=== PATIENT | female | born 1985 | race Caucasian/White ===

== ENCOUNTER 2018-01-25 09:02 | Observation (INO) | payer BC, SELFPAY ==
[~2018-01-25 09:02] MED LIST: Acetaminophen/HYDROcodone 325-5 MG Tab PO PRN; Bupivacaine 0.25%/EPINEPHrine 1:200,000 10 ML SDV INJECT ONE; Bupivacaine 25%/EPINEPHrine/PF 30 ML ONE; Clindamycin Phosphate in D5W 600 MG in Premix Bag 1 BAG IV ONE; Octyl 2-Cyanoacrylate 1 Tube ONE
[2018-01-25] MEDS ORDERED: Scopolamine 1.5 MG Transdermal Patch TRDERM PRN (09:33)
--- NOTE | 2018-01-25 09:34 | PCM.PREANE ---
Preanesthetic Assessment - Anesthesia/Transfusion/Family Hx Anesthesia History: Prior Anesthesia Reaction Type of Anesthesia Reaction: Excessive Nausea/Vomiting Family History of Anesthesia Reaction: No Transfusion History: No Prior Transfusion(s) - Review of Systems General: No Symptoms Pulmonary: No Symptoms Cardiovascular: No Symptoms Gastrointestinal: No Symptoms Neurological: No Symptoms Other: Reports: None - Physical Assessment NPO Status Date: 01/24/18 Height: 1.63 m Weight: 84.822 kg ASA Class: 2 Mental Status: Alert & Oriented x3 Airway Class: Mallampati = 1 Dentition: Reports: Normal Dentition ROM/Head Extension: Full Lungs: Clear to Auscultation, Normal Respiratory Effort Cardiovascular: Regular Rate, Regular Rhythm - Allergies Allergies/Adverse Reactions: Allergies Allergy/AdvReac Type Severity Reaction Status Date / Time Penicillins Allergy Rash Verified 01/19/18 15:39 - Anesthesia Plan Pre-Op Medication Ordered: Other (scop patch) - Acknowledgements Anesthesia Type Planned: General Anesthesia Pt an Appropriate Candidate for the Planned Anesthesia: Yes Alternatives and Risks of Anesthesia Discussed w Pt/Guardian: Yes Pt/Guardian Understands and Agrees with Anesthesia Plan: Yes PreAnesthesia Questionnaire HEENT History: Reports: Other (See Below) Other HEENT History: wears glasses/contacts Other Respiratory History: "borderline sleep apnea" prior to weight loss sugery Gastrointestinal History: Reports: None Endocrine/Metabolic History: Reports: Hypothyroidism, Obesity/BMI 30+ Other Endocrine/Metabolic History: hypothyroid in the past, no longer on medication - Past Surgical History Head Surgeries/Procedures: Reports: None GI Surgical History: Reports: Bariatric Procedure Other GI Surgeries/Procedures: gastric bypass - SUBSTANCE USE Smoking Status *Q: Never Smoker Second Hand Smoke Exposure: No Recreational Drug Use History: No - HOME MEDS Home Medications: Home Meds . [No Known Home Meds] 01/19/18 [History] - CURRENT (IN HOUSE) MEDS Current Meds: Current Medications Hydrocodone Bitart/Acetaminophen ([place] 325-5 Mg) 1 tab PO Q4H PRN PRN Reason: Pain Lactated Ringer's (Ringers, Lactated) 1,000 mls @ 125 mls/hr IV ASDIRECTED JESÚS Discontinued Medications Bupivacaine HCl/Epinephrine Bitart (Marcaine 0.25%/Epinephrine 1:200,000) 10 ml INJECT ONETIME ONE Stop: 04/25/18 08:01 Clindamycin Phosphate 600 mg/ (Premix) 50 mls @ 150 mls/hr IV ONETIME ONE Stop: 01/25/18 08:19 Bupivacaine HCl/Epinephrine Bitart (Sensorc Mpf 0.25%-Epi 1:761018) Confirm Administered Dose 30 mls @ as directed .ROUTE .STK-MED ONE Stop: 01/25/18 07:27 Octyl Cyanoacrylate (Dermabond Advance) Confirm Administered Dose 1 applic .ROUTE .STK-MED ONE Stop: 01/25/18 08:40
[2018-01-25] MEDS: Lactated Ringers 1,000 ML IV SCH ×2 (09:45→17:24)
[2018-01-25] MEDS ORDERED: Glycopyrrolate 0.2 MG/ML SDV ONE ×2 (09:54→13:14)
[2018-01-25] MEDS ORDERED: Propofol 200 MG/20 ML SDV ONE (09:54)
[2018-01-25] MEDS ORDERED: Neostigmine Methylsulfate 1 MG/ML 5 ML Syringe ONE (09:54)
[2018-01-25] MEDS ORDERED: Ondansetron 4 MG/2 ML SDV ONE (09:54)
[2018-01-25] MEDS ORDERED: Sodium Chloride 0.9% 20 ML ONE (09:54)
[2018-01-25] MEDS ORDERED: Lidocaine 2% 5 ML SDV ONE (09:54)
[2018-01-25] MEDS ORDERED: fentaNYL 250 MCG/5 ML SDV ONE ×3 (09:55→12:59)
[2018-01-25] MEDS ORDERED: Midazolam 1 MG/ML 2 ML SDV ONE (09:55)
[2018-01-25] MEDS ORDERED: EPINEPHrine 1 MG/ML SDV ONE (10:04)
[2018-01-25] MEDS ORDERED: Lidocaine 1% 50 ML MDV ONE (10:05)
[2018-01-25] MEDS ORDERED: ePHEDrine 50 MG/ML SDV ONE (11:26)
[2018-01-25] MEDS ORDERED: HYDROmorphone 2 MG/ML SDV ONE (11:54)
[2018-01-25] MEDS ORDERED: Dexamethasone 4 MG/ML 5 ML MDV ONE (13:01)
[2018-01-25] MEDS ORDERED: diphenhydrAMINE 50 MG/ML SDV ONE (14:56)
[2018-01-25] MEDS ORDERED: fentaNYL 100 MCG/2 ML SDV IVPUSH PRN (15:54)
[2018-01-25] MEDS ORDERED: diphenhydrAMINE 25 MG Cap PO PRN (16:24)
[2018-01-25] MEDS ORDERED: Ibuprofen 600 MG Tab PO PRN (16:24)
--- NOTE | 2018-01-25 16:26 | PCM.POSTAN ---
POST ANESTHESIA ASSESSMENT - MENTAL STATUS Mental Status: Alert - RESPIRATORY Respiratory Status: Respiratory Rate WNL - CARDIOVASCULAR CV Status: Pulse Rate WNL - GASTROINTESTINAL GI Status: No Symptoms
--- NOTE | 2018-01-25 16:27 | PCM48HPAN ---
Post Anesthesia Note - EVALUATION WITHIN 48HRS OF ANESTHETIC Vital Signs in Normal Range: Yes Patient Participated in Evaluation: Yes Respiratory Function Stable: Yes Airway Patent: Yes Cardiovascular Function Stable: Yes Hydration Status Stable: Yes Pain Control Satisfactory: Yes Nausea and Vomiting Control Satisfactory: Yes Mental Status Recovered: Yes Resp Rate: 9
--- NOTE | 2018-01-25 16:31 | PCM.OPNOTE ---
- General Post-Op/Procedure Note Date of Surgery/Procedure: 01/25/18 Operative Procedure(s): abdominoplasty and bilateral brachioplasty Pre Op Diagnosis: excess skin abdomen and arms Post-Op Diagnosis: Same Anesthesia Technique: General ET Tube, Local Primary Surgeon: Shari Amor Surgical Drain/Tube Type: Adán Smith Drain Drain/Tube Comments:: 2 10 octavio in abdomen. no drains in arms Complications: None Condition: Good Free Text/Narrative:: Intake & Output 01/25/18 01/25/18 01/25/18 07:59 15:59 23:59 Output Total 875 Balance -875
[2018-01-25] MEDS: Clindamycin HCl 150 MG Cap PO SCH (17:23)
[2018-01-25] MEDS: Morphine 4 MG/ML Syringe IVPUSH PRN ×2 (17:48→20:02)
[2018-01-25] MEDS: Ondansetron 4 MG/2 ML SDV IVPUSH PRN ×2 (17:48→21:49)
[2018-01-25] MEDS: Promethazine 25 MG Tab PO PRN (20:02)
[2018-01-26] MEDS: Clindamycin HCl 150 MG Cap PO SCH ×5 (00:37→18:24)
[2018-01-26] MEDS: Ondansetron 4 MG/2 ML SDV IVPUSH PRN ×3 (01:46→15:54)
[2018-01-26] MEDS: Morphine 4 MG/ML Syringe IVPUSH PRN ×2 (01:49→05:48)
[2018-01-26] MEDS: Lactated Ringers 1,000 ML IV SCH ×2 (01:55→09:49)
[2018-01-26] MEDS ORDERED: Promethazine 25 MG/ML SDV IM ONE (07:12)
[2018-01-26] MEDS: Ondansetron 4 MG Tab.DIS PO PRN ×2 (10:12→20:28)
[2018-01-26] MEDS ORDERED: Prochlorperazine 5 MG in Sodium Chloride 0.9% 50 ML IV PRN (10:13)
--- NOTE | 2018-01-26 10:13 | PCM.PN ---
- General Info Date of Service: 01/26/18 Admission Dx/Problem (Free Text): abdominoplasty and brachioplasty bilateral Subjective Update: quite nauseated and emesis overnight. Some sleep and was controlled initially but now worse. The patient is distractable with conversation from symptoms./ Functional Status: Reports: Pain Controlled, Incentive Spirometry - Review of Systems General: Reports: Malaise. Denies: Appetite HEENT: Reports: No Symptoms Pulmonary: Reports: No Symptoms Cardiovascular: Reports: No Symptoms Gastrointestinal: Reports: Nausea, Vomiting. Denies: Difficulty Swallowing Genitourinary: Reports: No Symptoms Musculoskeletal: Reports: Arm Pain Psychiatric: Reports: Anxiety - Patient Data Vitals - Most Recent: Last Vital Signs Temp 98.3 F 01/26/18 07:35 Pulse 52 L 01/26/18 07:35 Resp 20 01/26/18 07:35 BP 172/109 H 01/26/18 07:35 Pulse Ox 93 L 01/26/18 07:35 Weight - Most Recent: 187 lb I&O - Last 24 Hours: Intake & Output 01/25/18 01/26/18 01/26/18 23:59 07:59 15:59 Intake Total 3900 1603 Output Total 1040 Balance 3900 563 Lab Results Last 24 Hours: Laboratory Results - last 24 hr 01/25/18 Range/Units 09:00 Urine HCG, Qual NEGATIVE (NEGATIVE) Med Orders - Current: Current Medications Hydrocodone Bitart/Acetaminophen ([place] 325-5 Mg) 1 tab PO Q4H PRN PRN Reason: Pain Clindamycin HCl (Cleocin) 300 mg PO Q6HR [facility] Last Admin: 01/26/18 05:45 Dose: 300 mg Diphenhydramine HCl (Benadryl) 25 mg PO Q6H PRN PRN Reason: Itching Lactated Ringer's (Ringers, Lactated) 1,000 mls @ 125 mls/hr IV ASDIRECTED [facility] Last Admin: 01/26/18 09:49 Dose: 125 mls/hr Ibuprofen (Motrin) 600 mg PO Q6H PRN PRN Reason: pain 1-3 Morphine Sulfate (Morphine) 2 mg IVPUSH Q2H PRN PRN Reason: pain 7-10 Last Admin: 01/26/18 05:48 Dose: 2 mg Ondansetron HCl (Zofran Odt) 4 mg PO Q6H PRN PRN Reason: Nausea/Vomiting Ondansetron HCl (Zofran) 4 mg IVPUSH Q4H PRN PRN Reason: Nausea Last Admin: 01/26/18 05:45 Dose: 4 mg Promethazine HCl (Phenergan) 25 mg PO Q6H PRN PRN Reason: Nausea/Vomiting Last Admin: 01/25/18 20:02 Dose: 25 mg Scopolamine (Transderm-Scop) 1.5 mg TRDERM Q72H PRN PRN Reason: Nausea/Vomiting Last Admin: 01/25/18 09:48 Dose: 1.5 mg Discontinued Medications Bupivacaine HCl/Epinephrine Bitart (Marcaine 0.25%/Epinephrine 1:200,000) 10 ml INJECT ONETIME ONE Stop: 01/25/18 08:01 Last Admin: 01/25/18 17:47 Dose: Not Given Dexamethasone (Dexamethasone) Confirm Administered Dose 20 mg .ROUTE .STK-MED ONE Stop: 01/25/18 13:02 Diphenhydramine HCl (Benadryl) Confirm Administered Dose 50 mg .ROUTE .STK-MED ONE Stop: 01/25/18 14:57 Ephedrine Sulfate (Ephedrine Sulfate) Confirm Administered Dose 50 mg .ROUTE .STK-MED ONE Stop: 01/25/18 11:27 Epinephrine HCl (Adrenalin) Confirm Administered Dose 1 mg .ROUTE .STK-MED ONE Stop: 01/25/18 10:05 Fentanyl (Sublimaze) Confirm Administered Dose 250 mcg .ROUTE .STK-MED ONE Stop: 01/25/18 09:56 Fentanyl (Sublimaze) Confirm Administered Dose 250 mcg .ROUTE .STK-MED ONE Stop: 01/25/18 11:55 Fentanyl (Sublimaze) Confirm Administered Dose 250 mcg .ROUTE .STK-MED ONE Stop: 01/25/18 13:00 Fentanyl (Sublimaze) 50 mcg IVPUSH .Q5MIN PRN PRN Reason: Pain Glycopyrrolate (Robinul) Confirm Administered Dose 0.4 mg .ROUTE .STK-MED ONE Stop: 01/25/18 09:55 Glycopyrrolate (Robinul) Confirm Administered Dose 0.4 mg .ROUTE .STK-MED ONE Stop: 01/25/18 13:15 Hydromorphone HCl (Dilaudid) Confirm Administered Dose 2 mg .ROUTE .STK-MED ONE Stop: 01/25/18 11:55 Clindamycin Phosphate 600 mg/ (Premix) 50 mls @ 150 mls/hr IV ONETIME ONE Stop: 01/25/18 08:19 Last Admin: 01/25/18 09:45 Dose: 150 mls/hr Bupivacaine HCl/Epinephrine Bitart (Sensorc Mpf 0.25%-Epi 1:311175) Confirm Administered Dose 30 mls @ as directed .ROUTE .STK-MED ONE Stop: 01/25/18 07:27 Sodium Chloride (Normal Saline) Confirm Administered Dose 20 mls @ as directed .ROUTE .STK-MED ONE Stop: 01/25/18 09:55 Lidocaine (Xylocaine-Mpf 2%) Confirm Administered Dose 5 ml .ROUTE .STK-MED ONE Stop: 01/25/18 09:55 Lidocaine HCl (Xylocaine 1%) Confirm Administered Dose 50 ml .ROUTE .STK-MED ONE Stop: 01/25/18 10:06 Midazolam HCl (Versed 1 Mg/Ml) Confirm Administered Dose 2 mg .ROUTE .STK-MED ONE Stop: 01/25/18 09:56 Neostigmine Methylsulfate (Neostigmine) Confirm Administered Dose 5 mg .ROUTE .STK-MED ONE Stop: 01/25/18 09:55 Octyl Cyanoacrylate (Dermabond Advance) Confirm Administered Dose 1 applic .ROUTE .STK-MED ONE Stop: 01/25/18 08:40 Ondansetron HCl (Zofran) Confirm Administered Dose 4 mg .ROUTE .STK-MED ONE Stop: 01/25/18 09:55 Promethazine HCl (Phenergan) 25 mg IM ONETIME ONE Stop: 01/26/18 07:13 Last Admin: 01/26/18 07:19 Dose: 25 mg Propofol (Diprivan 20 Ml) Confirm Administered Dose 200 mg .ROUTE .STK-MED ONE Stop: 01/25/18 09:55 Vecuronium [place] (Vecuronium) Confirm Administered Dose 10 mg .ROUTE .STK-MED ONE Stop: 01/25/18 09:55 - Exam General: Alert, Oriented, Mild Distress HEENT: Pupils Equal, Pupils Reactive Lungs: Normal Respiratory Effort Extremities: Normal Inspection Skin: Warm, Dry Wound/Incisions: Drainage (in CAMRON sites - serosanguinous. Dressings intact. ) Psy/Mental Status: Alert, Anxious - Problem List & Annotations (1) Status post abdominoplasty SNOMED Code(s): 240491852, 656882714 Code(s): Z98.890 - OTHER SPECIFIED POSTPROCEDURAL STATES Status: Acute Priority: High Current Visit: Yes (2) Nausea and vomiting after administration of anesthetic agent SNOMED Code(s): 926908444 Code(s): T88.59XA - OTHER COMPLICATIONS OF ANESTHESIA, INITIAL ENCOUNTER; R11.2 - NAUSEA WITH VOMITING, UNSPECIFIED Status: Acute Priority: High Current Visit: Yes - Problem List Review Problem List Initiated/Reviewed/Updated: Yes - My Orders Last 24 Hours: My Active Orders 01/25/18 16:24 Patient Status [ADT] Routine Ibuprofen [Motrin] 600 mg PO Q6H PRN Morphine 2 mg IVPUSH Q2H PRN Ondansetron [Zofran ODT] 4 mg PO Q6H PRN Ondansetron [Zofran] 4 mg IVPUSH Q4H PRN Promethazine [Phenergan] 25 mg PO Q6H PRN diphenhydrAMINE [Benadryl] 25 mg PO Q6H PRN 01/25/18 16:28 Ambulate [RC] PER UNIT ROUTINE Drain Management [RC] ASDIRECTED Occlusive Dressing [Wound Care] [RC] DAILY 01/25/18 18:00 Clindamycin HCl [Cleocin] 300 mg PO Q6HR 01/25/18 Dinner Regular Diet [DIET] - Plan Plan:: We will continue aggressive nausea control with scopolamin, zofran and phenergan. We can add compazine (after at least 2 hours of failed phenergan IM ) if still struggling after IM phenergan, but would be hesitant to administer quickly given the poly pharmacy and distractibility with conversation. Continue to encourage PO IVF continue Observation status from same day
[2018-01-26] MEDS: Prochlorperazine 10 MG/2 ML SDV IV PRN ×2 (11:23→17:37)
--- NOTE | 2018-01-26 20:20 | OR ---
SURGEON: MAINE TUTTLE MD DATE OF PROCEDURE: 01/25/2018 PREOPERATIVE DIAGNOSIS: Excess skin of the abdomen and also excess arm skin. POSTOPERATIVE DIAGNOSIS: Excess skin of the abdomen and also excess arm skin. PROCEDURES: Abdominoplasty and bilateral brachioplasty. SALES PLANNING ANALYST: None. ANESTHESIA: General ET tube with local. INDICATIONS: Ms. Garrison is a 32-year-old female, who was seen today in evaluation for abdominoplasty and bilateral brachioplasty. We did obtain abdominoplasty approval from her insurance company. They denied the brachioplasty. She would still like to proceed with this and we had discussed risks and benefits in clinic. There was a small miscommunication about inclusion of the brachioplasty and it was removed from the procedure today. We do have time to accomplish this and we will plan to proceed. Risks and benefits were discussed with her again including but not limited to, bleeding, infection, damage to underlying or overlying structures, possible need for future interventions, possible scarring. In the in addition, we discussed payment. She has already agreed to these terms per the quot provided to her. She will pay at her first followup visit for the brachioplasty and the umbilical plasty associated with the abdominoplasty. The panniculectomy itself is insurance coverage. She understands this and verbalized agreement today as did her mother. The patient also has significant problems with postoperative nausea and vomiting. We will do everything possible to control this. She does know all the risks and all questions answered. PROCEDURE IN DETAIL: After informed consent was obtained and placed on the chart, the patient was brought to the operating theater and laid in supine position. After adequate general anesthesia was obtained, the area was prepped and draped, a time-out was completed to confirm side and site. The patient was given a preoperative dose of antibiotics and once adequately prepped and draped in the standard fashion. Attention was first paid to the abdomen. Dissection was carried through skin and subcutaneous tissues as marked in the preanesthesia area for the skin overhanging. Dissection was carried down through the subcutaneous tissues until reaching the abdominal wall. On the abdominal all the way up to the xiphoid process taking care to isolate the umbilicus. Once adequately dissected, meticulous hemostasis was obtained and copious irrigation was used. Her muscle structure was impressively better than anticipated with only a small amount of diastasis, which was repaired using a 0 Ethibond suture in a [id number] fashion. Once this was repaired, attention was then paid to the mons area and significant undermining was done here. The mons was elevated and excess tissue was cut of as well. The 2-0 PDS suture was then used to secure the Beatrice's fascia up to the abdominal wall to allow elevation of the mons area. Once this was completed, the area was copiously irrigated again and meticulous hemostasis was obtained. The skin flaps were redraped. The patient was sat up 30 degrees. In this position, once the skin was redraped, new borders were marked in order to allow skin excision. The excess skin was excised for a total of almost 5 pounds. Once adequately excised, the skin was redraped and two size #10 CAMRON drains were laid into the wound and brought out the lateral ends of the incision. The skin was then stapled in place under minimal tension to allow appropriate closure. Once adequately stapled in place and redraped appropriately, attention was then paid to closure using deep 2-0 PDS Stratafix sutures in a running fashion for the Beatrice's fascia. A deep through Monocryl stitch Stratafix for the dermis and a running 4-0 Monocryl Stratafix for the skin. Once adequately closed, the wounds were dressed with Steri-Strips and the drains were sutured in using a 3-0 Prolene stitch in a horizontal mattress fashion laterally. Once adequately completed attention was then paid to dissection of the umbilicus. The 18 cm distance from the pubic bone was marked appropriately as measured prior to closure, and the "V" incision was made over the umbilicus, was then brought through. This was trimmed and sutured in place appropriately using the 4-0 Monocryl Stratafix suture as well. Dermabond for the skin was applied. She tolerated this well and Tegaderm border was placed. Attention was then paid to bilateral brachioplasty and the preop anesthesia markings were used and ensured to be symmetric prior to injection of tumescent anesthesia for a total of 120 mL per arm. Once lab set, attention was then paid to dissection and dissection was carried at the mid to posterior upper arm and carried down to the superficial fascia layer. This was left intact and dissection was carried undermining of the excess skin. This excess skin was removed en bloc with care taken to protect any superficial cutaneous nerves. Meticulous hemostasis was obtained here and a small amount of liposuction was done around this area in order to provide appropriate contour. Symmetric excisions, liposuction, and injection of tumescent were ensured to completely obtain symmetry, postoperatively. Meticulous hemostasis was obtained and then the skin was tacked closed using gisela. A small "T" was made at the axillary area in order to ensure no dog-ear and appropriate indentation here. Once adequately stable together, a deep 3-0 Monocryl Stratafix suture and a running 4- 0 Stratafix suture for the skin were used to close. The patient tolerated this well and the wounds were dressed with Mastisol, Steri-Strips, and ABDs. The dissection was carried symmetrically bilaterally to ensure appropriate symmetry. Appropriate symmetry and excised weights were appreciated at the end of the case. The wounds were then dressed with ABDs and a 6 inch Edward wrap on the arm, Kerlix fluffs, and an abdominal binder on the belly. The patient tolerated this well. All counts and needles were correct at the end of the case. Exparel was also used in the abdomen intraoperatively for appropriate pain control. The patient tolerated this well. All counts and needles were correct at the end of the case. FOLLOWUP INSTRUCTIONS: The patient will be maintained in the hospital for close observation given her history of nausea and vomiting. We will also maintain for pain control. We will recheck and discharge as appropriate. HEGGTHE / KEEGAN /[id number]
[2018-01-26] MEDS: Promethazine 25 MG Tab PO PRN (22:10)
[2018-01-27] MEDS: Clindamycin HCl 150 MG Cap PO SCH ×3 (00:02→13:04)
[2018-01-27] MEDS: Ondansetron 4 MG Tab.DIS PO PRN ×2 (02:35→09:47)
[2018-01-27] MEDS: Lactated Ringers 1,000 ML IV SCH ×2 (02:36→10:52)
[2018-01-27 09:21] VITALS: BP 156/73
[2018-01-27] MEDS: Promethazine 25 MG Tab PO PRN (10:51)
--- NOTE | 2018-01-27 12:33 | PCM.PN ---
- General Info Date of Service: 01/27/18 Admission Dx/Problem (Free Text): much better. Nausea and pain controlled well. Functional Status: Reports: Pain Controlled, Tolerating Diet, Ambulating, Urinating. Denies: New Symptoms - Review of Systems General: Reports: No Symptoms HEENT: Reports: No Symptoms Pulmonary: Reports: No Symptoms Gastrointestinal: Reports: Nausea (but controlled) Psychiatric: Reports: No Symptoms - Patient Data Vitals - Most Recent: Last Vital Signs Temp 98.5 F 01/27/18 08:00 Pulse 66 01/27/18 08:00 Resp 16 01/27/18 08:00 BP 156/73 H 01/27/18 08:00 Pulse Ox 96 01/27/18 08:00 Weight - Most Recent: 187 lb I&O - Last 24 Hours: Intake & Output 01/26/18 01/27/18 01/27/18 23:59 07:59 15:59 Intake Total 2010 1997 Output Total 1250 650 Balance 761 1348 Med Orders - Current: Current Medications Hydrocodone Bitart/Acetaminophen ([place] 325-5 Mg) 1 tab PO Q4H PRN PRN Reason: Pain Clindamycin HCl (Cleocin) 300 mg PO Q6HR JES[facility]S Last Admin: 01/27/18 05:05 Dose: 300 mg Diphenhydramine HCl (Benadryl) 25 mg PO Q6H PRN PRN Reason: Itching Lactated Ringer's (Ringers, Lactated) 1,000 mls @ 125 mls/hr IV ASDIRECTED JESÚS Last Admin: 01/27/18 10:52 Dose: 125 mls/hr Ibuprofen (Motrin) 600 mg PO Q6H PRN PRN Reason: pain 1-3 Morphine Sulfate (Morphine) 2 mg IVPUSH Q2H PRN PRN Reason: pain 7-10 Last Admin: 01/26/18 05:48 Dose: 2 mg Ondansetron HCl (Zofran Odt) 4 mg PO Q6H PRN PRN Reason: Nausea/Vomiting Last Admin: 01/27/18 09:47 Dose: 4 mg Ondansetron HCl (Zofran) 4 mg IVPUSH Q4H PRN PRN Reason: Nausea Last Admin: 01/26/18 15:54 Dose: 4 mg Prochlorperazine Edisylate (Compazine) 5 mg IV Q6H PRN PRN Reason: NAUSEA Last Admin: 01/26/18 17:37 Dose: 5 mg Promethazine HCl (Phenergan) 25 mg PO Q6H PRN PRN Reason: Nausea/Vomiting Last Admin: 01/27/18 10:51 Dose: 25 mg Scopolamine (Transderm-Scop) 1.5 mg TRDERM Q72H PRN PRN Reason: Nausea/Vomiting Last Admin: 01/25/18 09:48 Dose: 1.5 mg Discontinued Medications Bupivacaine HCl/Epinephrine Bitart ([place] 0.25%/Epinephrine 1:200,000) 10 ml INJECT ONETIME ONE Stop: 01/25/18 08:01 Last Admin: 01/25/18 17:47 Dose: Not Given Dexamethasone (Dexamethasone) Confirm Administered Dose 20 mg .ROUTE .STK-MED ONE Stop: 01/25/18 13:02 Diphenhydramine HCl (Benadryl) Confirm Administered Dose 50 mg .ROUTE .STK-MED ONE Stop: 01/25/18 14:57 Ephedrine Sulfate (Ephedrine Sulfate) Confirm Administered Dose 50 mg .ROUTE .STK-MED ONE Stop: 01/25/18 11:27 Epinephrine HCl (Adrenalin) Confirm Administered Dose 1 mg .ROUTE .STK-MED ONE Stop: 01/25/18 10:05 Fentanyl (Sublimaze) Confirm Administered Dose 250 mcg .ROUTE .STK-MED ONE Stop: 01/25/18 09:56 Fentanyl (Sublimaze) Confirm Administered Dose 250 mcg .ROUTE .STK-MED ONE Stop: 01/25/18 11:55 Fentanyl (Sublimaze) Confirm Administered Dose 250 mcg .ROUTE .STK-MED ONE Stop: 01/25/18 13:00 Fentanyl (Sublimaze) 50 mcg IVPUSH .Q5MIN PRN PRN Reason: Pain Glycopyrrolate (Robinul) Confirm Administered Dose 0.4 mg .ROUTE .STK-MED ONE Stop: 01/25/18 09:55 Glycopyrrolate (Robinul) Confirm Administered Dose 0.4 mg .ROUTE .STK-MED ONE Stop: 01/25/18 13:15 Hydromorphone HCl (Dilaudid) Confirm Administered Dose 2 mg .ROUTE .STK-MED ONE Stop: 01/25/18 11:55 Clindamycin Phosphate 600 mg/ (Premix) 50 mls @ 150 mls/hr IV ONETIME ONE Stop: 01/25/18 08:19 Last Admin: 01/25/18 09:45 Dose: 150 mls/hr Bupivacaine HCl/Epinephrine Bitart (Sensorc Mpf 0.25%-Epi 1:688484) Confirm Administered Dose 30 mls @ as directed .ROUTE .STK-MED ONE Stop: 01/25/18 07:27 Sodium Chloride (Normal Saline) Confirm Administered Dose 20 mls @ as directed .ROUTE .STK-MED ONE Stop: 01/25/18 09:55 Prochlorperazine Edisylate 5 (mg/ Sodium Chloride) 51 mls @ 150 mls/hr IV Q6H PRN PRN Reason: Nausea/Vomiting Lidocaine (Xylocaine-Mpf 2%) Confirm Administered Dose 5 ml .ROUTE .STK-MED ONE Stop: 01/25/18 09:55 Lidocaine HCl (Xylocaine 1%) Confirm Administered Dose 50 ml .ROUTE .STK-MED ONE Stop: 01/25/18 10:06 Midazolam HCl (Versed 1 Mg/Ml) Confirm Administered Dose 2 mg .ROUTE .STK-MED ONE Stop: 01/25/18 09:56 Neostigmine Methylsulfate (Neostigmine) Confirm Administered Dose 5 mg .ROUTE .STK-MED ONE Stop: 01/25/18 09:55 Octyl Cyanoacrylate (Dermabond Advance) Confirm Administered Dose 1 applic .ROUTE .STK-MED ONE Stop: 01/25/18 08:40 Ondansetron HCl (Zofran) Confirm Administered Dose 4 mg .ROUTE .STK-MED ONE Stop: 01/25/18 09:55 Promethazine HCl (Phenergan) 25 mg IM ONETIME ONE Stop: 01/26/18 07:13 Last Admin: 01/26/18 07:19 Dose: 25 mg Propofol (Diprivan 20 Ml) Confirm Administered Dose 200 mg .ROUTE .STK-MED ONE Stop: 01/25/18 09:55 Vecuronium [place] (Vecuronium) Confirm Administered Dose 10 mg .ROUTE .STK-MED ONE Stop: 01/25/18 09:55 - Exam General: Alert, Oriented, Cooperative, No Acute Distress Lungs: Normal Respiratory Effort Extremities: Normal Inspection, Normal Range of Motion Skin: Warm, Dry Wound/Incisions: Healing Well, Dressing Dry and Intact, Drainage (in octavio's more on the right than left. Serosanguinous. ) Neurological: No New Focal Deficit Psy/Mental Status: Alert, Normal Affect, Normal Mood - Problem List & Annotations (1) Status post abdominoplasty SNOMED Code(s): 054449503, 680940674 Code(s): Z98.890 - OTHER SPECIFIED POSTPROCEDURAL STATES Status: Acute Priority: High Current Visit: Yes (2) Nausea and vomiting after administration of anesthetic agent SNOMED Code(s): 948317190 Code(s): T88.59XA - OTHER COMPLICATIONS OF ANESTHESIA, INITIAL ENCOUNTER; R11.2 - NAUSEA WITH VOMITING, UNSPECIFIED Status: Acute Priority: High Current Visit: Yes - Problem List Review Problem List Initiated/Reviewed/Updated: Yes - My Orders Last 24 Hours: My Active Orders 01/26/18 11:49 Admission Status [Patient Status] [ADT] Routine 01/27/18 12:31 Ready for Discharge [RC] PER UNIT ROUTINE - Plan Plan:: Much improved today. Home on po meds and nausea medication. Follow up in [facility] for January 30. instructions on wound cares and showers dsicussed with patient. Printed instructions provided. 10lb wt limit and garments at all time.
== END 2018-01-27 13:20 | disposition home or self-care (01) ==
LOC: MW.SDS 09:02 → MW.MS 16:25 → MW.SDS 01-26 11:54
PROVIDERS: ADMIT Plastic Surgery; ATTEND Plastic Surgery
DX: L98.7 Excessive and redundant skin and subcutaneous tissue (principal); T88.59XA Other complications of anesthesia, initial encounter; R11.2 Nausea with vomiting, unspecified; Z98.890 Other specified postprocedural states
CPT/HCPCS: 15830; 15836; 15847; 81025; A9270; J0171; J0780; J1100; J1170; J1200; J2250; J2270; J2405; J2550; J3010; J7120; J2704

== ENCOUNTER 2020-02-26 21:24 | Emergency (ER) | payer BC, OTHER ==
[2020-02-26] MEDS ORDERED: Bacitracin Oint 1 GM U/D Packet TOP ONE (21:38)
[2020-02-26] MEDS ORDERED: Diphtheria,Pertussis(Acell),Tetanus Vaccine 0.5 ML Syringe IM ONE (21:38)
[2020-02-26] MEDS ORDERED: Lidocaine 2% 5 ML SDV INJECT ONE (21:44)
--- NOTE | 2020-02-26 22:16 | EDM.PDOC ---
ED HPI GENERAL MEDICAL PROBLEM - General Chief Complaint: Laceration Stated Complaint: LEFT HAND CUT Time Seen by Provider: 02/26/20 21:38 Source of Information: Reports: Patient History Limitations: Reports: No Limitations - History of Present Illness INITIAL COMMENTS - FREE TEXT/NARRATIVE: Patient is a 35-year-old female who cut her left hand on a piece of glass that had been thrown in the trash earlier in the day. Patient denies any glass foreign body sensation. She is complaining it was bleeding profusely initially. She denies any numbness weakness paresthesias. She has no other complaints and is not up-to-date with tetanus. Onset: Today, Sudden Location: Reports: Upper Extremity, Left Quality: Reports: Ache Severity: Mild LEFT HAND Pain Score (Numeric/FACES): 6 - Related Data Allergies Allergy/AdvReac Type Severity Reaction Status Date / Time Penicillins Allergy Rash Verified 02/26/20 21:35 Home Meds: Home Meds Levothyroxine 25 mcg PO ACBREAKFAST 02/26/20 [History] Past Medical History HEENT History: Reports: Other (See Below) Other HEENT History: wears glasses/contacts Other Respiratory History: "borderline sleep apnea" prior to weight loss sugery Gastrointestinal History: Reports: None Endocrine/Metabolic History: Reports: Hypothyroidism, Obesity/BMI 30+ Other Endocrine/Metabolic History: hypothyroid in the past, no longer on medication - Infectious Disease History Infectious Disease History: Reports: Chicken Pox - Past Surgical History Head Surgeries/Procedures: Reports: None GI Surgical History: Reports: Bariatric Procedure Other GI Surgeries/Procedures: gastric bypass Social & Family History - Family History Family Medical History: Noncontributory - Tobacco Use Smoking Status *Q: Never Smoker ED ROS GENERAL - Review of Systems Review Of Systems: Comprehensive ROS is negative, except as noted in HPI. ED EXAM, SKIN/RASH Exam: See Below Exam Limited By: No Limitations General Appearance: Alert Head: Normocephalic Neck: Normal Inspection Respiratory/Chest: No Respiratory Distress Back Exam: Full Range of Motion, Other (Positive for 2 cm laceration on the dorsum of her hand on the hyperthenar eminence. This is pumping blood from laceration of a small arterial.) Neurological: Alert, Oriented Psychiatric: Normal Affect Skin: Warm, Dry ED SKIN PROCEDURES - Laceration/Wound Repair Left Hand Appearance: Clean Distal NVT: Neuro & Vascular Intact, No Tendon Injury Anesthetic Type: Local Local Anesthesia - Lidocaine (Xylocaine): 2% Plain Local Anesthetic Volume: 2cc Skin Prep: Chlorhexidine (Hibiciens), Providone-Iodine (Betadine) Saline Irrigation (cc's): 100 Closed with: Sutures Lac/Wound length In cm: 2 Suture Size: 4-0 # of Sutures: 3 Suture Type: Nylon Progress/Comments: Bleeding controlled and wound edges well approximated. Patient tolerated procedure well. Having a bacitracin dressing applied. Course - Vital Signs Last Recorded V/S: Last Vital Signs Temp 35.9 C L 02/26/20 21:31 Pulse 74 02/26/20 21:31 Resp 16 02/26/20 21:31 BP 114/72 02/26/20 21:31 Pulse Ox 96 02/26/20 21:31 - Orders/Labs/Meds Orders: Active Orders 24 hr Category Date Time Status Vaccines to be Administered [RC] PER UNIT ROUTINE Care 02/26/20 21:39 Active Meds: Medications Discontinued Medications Generic Name Dose Route Start Last Admin Trade Name Isauro PRN Reason Stop Dose Admin Bacitracin 1 dose 02/26/20 21:38 02/26/20 21:45 Bacitracin Oint 1 Gm TOP 02/26/20 21:39 1 dose ONETIME ONE Administration Diphtheria/Tetanus/Acell Pertussis 0.5 ml 02/26/20 21:38 02/26/20 21:45 Adacel IM 02/26/20 21:39 0.5 ml .ONCE ONE Administration Lidocaine 5 ml 02/26/20 21:44 02/26/20 21:48 Xylocaine-Mpf 2% INJECT 02/26/20 21:45 Not Given ONETIME ONE Lidocaine HCl 5 ml 02/26/20 21:48 02/26/20 21:49 Xylocaine-Mpf 1% INJECT 02/26/20 21:49 5 ml ONETIME ONE Administration Departure - Departure Time of Disposition: 22:21 Disposition: Home, Self-Care 01 Condition: Good Clinical Impression: Laceration of hand - Discharge Information Instructions: Wound Care, Adult Referrals: PCP,None [Primary Care Provider] - Forms: ED Department Discharge Additional Instructions: The following information is given to patients seen in the emergency department who are being discharged to home. This information is to outline your options for follow-up care. We provide all patients seen in our emergency department with a follow-up referral. The need for follow-up, as well as the timing and circumstances, are variable depending upon the specifics of your emergency department visit. If you don't have a primary care physician on staff, we will provide you with a referral. We always advise you to contact your personal physician following an emergency department visit to inform them of the circumstance of the visit and for follow-up with them and/or the need for any referrals to a consulting specialist. The emergency department will also refer you to a specialist when appropriate. This referral assures that you have the opportunity for follow-up care with a specialist. All of these measure are taken in an effort to provide you with optimal care, which includes your follow-up. Under all circumstances we always encourage you to contact your private physician who remains a resource for coordinating your care. When calling for follow-up care, please make the office aware that this follow-up is from your recent emergency room visit. If for any reason you are refused follow-up, please contact the [facility] Emergency Department at and asked to speak to the emergency department charge nurse. Care Plan Goals: May use hydrogen peroxide 1 time only. Antibiotic ointment twice a day. Suture removal in 7 days. Return sooner if any sign of infection. Keep clean and dry. Sepsis Event Note - Evaluation Sepsis Screening Result: No Definite Risk - Focused Exam Vital Signs: Vital Signs Temp Pulse Resp BP Pulse Ox 02/26/20 21:31 35.9 C L 74 16 114/72 96 Date Exam was Performed: 02/26/20 Time Exam was Performed: 22:17 - My Orders Last 24 Hours: My Active Orders 02/26/20 21:39 Vaccines to be Administered [RC] PER UNIT ROUTINE - Assessment/Plan Last 24 Hours: My Active Orders 02/26/20 21:39 Vaccines to be Administered [RC] PER UNIT ROUTINE
[2020-02-26 23:04] VITALS: BP 136/79; PULSE 78
== END 2020-02-26 23:02 | disposition home or self-care (01) ==
LOC: MW.ED 21:24
DX: S61.412A Laceration without foreign body of left hand, initial encounter (principal); Z23 Encounter for immunization; Z88.0 Allergy status to penicillin; E66.9 Obesity, unspecified; Z68.37 Body mass index [BMI] 37.0-37.9, adult; W25.XXXA Contact with sharp glass, initial encounter
CPT/HCPCS: 12001; 90471; 90715; 99282; J2001

== ENCOUNTER 2020-03-05 09:39 | Emergency (ER) | payer OTHER | END 2020-03-05 11:00 | disposition home or self-care (01) | LOC: MW.ED 09:39 | DX: S61.412D Laceration without foreign body of left hand, subsequent encounter (principal); X58.XXXD Exposure to other specified factors, subsequent encounter | CPT/HCPCS: 99281 ==

== ENCOUNTER 2023-03-19 00:22 | Emergency (ER) | payer OTHER ==
[2023-03-19] MEDS ORDERED: Lidocaine/Epineph/Tetracaine 3 ML Syringe TOP ONE ×2 (02:17→02:51)
[2023-03-19] MEDS ORDERED: Ibuprofen 400 MG Tab PO ONE (02:51)
[2023-03-19] MEDS ORDERED: Acetaminophen 325 MG Tab PO ONE (02:51)
[2023-03-19] MEDS ORDERED: Octyl 2-Cyanoacrylate 1 g/1 mL 1 APPLIC PEN TOP ONE (02:51)
[2023-03-19 03:44] VITALS: BP 129/80; PULSE 62
== END 2023-03-19 03:40 | disposition home or self-care (01) ==
LOC: MW.ED 00:22
DX: S61.210A Laceration without foreign body of right index finger without damage to nail, initial encounter (principal); E03.9 Hypothyroidism, unspecified; E66.9 Obesity, unspecified; Z68.39 Body mass index [BMI] 39.0-39.9, adult; Z88.0 Allergy status to penicillin; Z79.899 Other long term (current) drug therapy; W26.0XXA Contact with knife, initial encounter; Y92.89 Other specified places as the place of occurrence of the external cause; Y99.0 Civilian activity done for income or pay
CPT/HCPCS: 12001; 99282; A9270